=== PATIENT | female | born 1990 | race African-American/Black ===

== ENCOUNTER 2018-07-27 13:49 | Inpatient (IN) ==
[2018-07-27] MEDS ORDERED: SODIUM CHLORIDE 0.9% 1,000 ML IV STA (15:07)
[2018-07-27 15:29] LABS: Osmolality,Calculated 267.2 MOS/KG (273-304); Potassium 3.7 MMOL/L (3.5-5.1)
[2018-07-27] MEDS ORDERED: ONDANSETRON 4 MG/2 ML VIAL IV STA (16:00)
[2018-07-27] MEDS ORDERED: ACETAMINOPHEN 325 MG TABLET PO PRN (17:03)
[2018-07-27] MEDS ORDERED: PROMETHAZINE 25 MG/1 ML VIAL IM PRN (17:03)
[2018-07-27] MEDS ORDERED: MAGNESIUM HYDROXIDE SUSP 30 ML UDCUP PO PRN (17:03)
[2018-07-27] MEDS ORDERED: METOCLOPRAMIDE 10 MG/2 ML VIAL IV SCH (18:00)
[2018-07-27] MEDS: PROMETHAZINE 25 MG/1 ML VIAL IM PRN (18:21)
[2018-07-27] MEDS: LACTATED RINGERS 1,000 ML IV SCH (18:23)
[2018-07-27] MEDS: ENOXAPARIN 40 MG/0.4 ML SYRINGE SUBCUT SCH (20:17)
[2018-07-27] MEDS: ONDANSETRON 4 MG/2 ML VIAL IV SCH (22:12)
[2018-07-28] MEDS: LACTATED RINGERS 1,000 ML IV SCH ×4 (00:50→17:47)
[2018-07-28] MEDS: ONDANSETRON 4 MG/2 ML VIAL IV SCH ×4 (04:16→21:47)
[2018-07-28 05:38] LABS: Basophils % 0.3 % (0.0-0.8); Eosinophils % 0.6 % (0.00-10.9); Hematocrit 28.3 VOL% (35.7-47.0); Hemoglobin 9.3 GM/DL (12.0-16.0); Immature Granulocytes % 0.6 %; Immature Granulocytes Absolute 0.04 #; Lymphocytes # 1.2 10*3/uL (1.4-4.0); Lymphocytes % 16.4 % (21.3-54.2); Mean Corpuscular HGB Conc 32.9 GM/DL (32-36); Mean Corpuscular Hemoglobin 25 PG (27-34); Mean Corpuscular Volume 75.9 FL (87-102); Mean Platelet Volume 10.9 FL (9.6-12.0); Monocytes # 0.8 10*3/uL (0.11-0.8); Monocytes % 10.9 % (1.7-12.7); Neutrophils % 71.2 % (38.7-73.9); Platelet Count 213 T/CUMM (130-400); Red Blood Count 3.73 MC/CUMM (3.8-5.5); Red Cell Distribution Width 14.7 % (9.3-17.3); White Blood Count 7.1 T/CUMM (4-12)
[2018-07-28 05:57] LABS: Calcium 7.9 MG/DL (8.5-10.1); Osmolality,Calculated 272.5 MOS/KG (273-304); Potassium 3.8 MMOL/L (3.5-5.1)
[2018-07-28 08:44] LABS: Apearance,Urine CLEAR (Clear); Bacteria,Urine Occasional /HPF (Few); Bilirubin,Urine Negative (Negative); Blood, Urine Negative (Negative); Glucose,Urine (UA) Negative (Negative); Ketones,Urine 80 mg/dL (Negative); Mucus,Urine Occasional /LPF (Occasional); Nitrite,Urine Negative (Negative); Protein,Urine Negative; RBC,Urine 1 /HPF (0-4); Squamous Epithelial Cell,Urine Occasional /HPF (0-10); Urine Color Amber (Yellow); Urine Specific Gravity 1.017 (1.001-1.035); WBC,Urine 1 /HPF (0-6)
[2018-07-28] MEDS: ENOXAPARIN 40 MG/0.4 ML SYRINGE SUBCUT SCH (17:44)
[2018-07-28] MEDS ORDERED: ALUMINUM/MAGNES/SIMETH MAX STR 30 ML UDCUP PO PRN (19:54)
[2018-07-29] MEDS: LACTATED RINGERS 1,000 ML IV SCH ×4 (01:00→22:28)
[2018-07-29] MEDS: ONDANSETRON 4 MG/2 ML VIAL IV PRN ×3 (06:09→20:45)
[2018-07-29] MEDS: PANTOPRAZOLE 40 MG TABLET PO SCH ×2 (11:22→20:42)
[2018-07-29] MEDS: ENOXAPARIN 40 MG/0.4 ML SYRINGE SUBCUT SCH (17:09)
[2018-07-29] MEDS: DOCUSATE SODIUM 100 MG CAPSULE PO SCH (20:42)
[2018-07-30] MEDS: ONDANSETRON 4 MG/2 ML VIAL IV PRN ×3 (04:16→19:15)
[2018-07-30] MEDS: LACTATED RINGERS 1,000 ML IV SCH ×3 (05:46→21:49)
[2018-07-30 08:42] LABS: Basophils % 0.1 % (0.0-0.8); Eosinophils % 0.4 % (0.00-10.9); Hematocrit 28.2 VOL% (35.7-47.0); Hemoglobin 9.3 GM/DL (12.0-16.0); Immature Granulocytes % 0.7 %; Immature Granulocytes Absolute 0.05 #; Lymphocytes # 0.9 10*3/uL (1.4-4.0); Lymphocytes % 13.2 % (21.3-54.2); Mean Corpuscular Hemoglobin 25 PG (27-34); Mean Corpuscular Volume 75.4 FL (87-102); Mean Platelet Volume 10.6 FL (9.6-12.0); Monocytes # 0.5 10*3/uL (0.11-0.8); Monocytes % 7.9 % (1.7-12.7); Neutrophils # 5.2 10*3/uL (1.4-7.4); Neutrophils % 77.7 % (38.7-73.9); Platelet Count 205 T/CUMM (130-400); Red Blood Count 3.74 MC/CUMM (3.8-5.5); Red Cell Distribution Width 14.5 % (9.3-17.3); White Blood Count 6.7 T/CUMM (4-12)
[2018-07-30] MEDS: PANTOPRAZOLE 40 MG TABLET PO SCH ×2 (08:54→21:57)
[2018-07-30] MEDS: DOCUSATE SODIUM 100 MG CAPSULE PO SCH ×2 (08:54→21:57)
[2018-07-30 09:17] LABS: Albumin 2.4 G/DL (3.4-5.0); Bilirubin,Total 0.5 MG/DL (0.2-1.0); Calcium 8.4 MG/DL (8.5-10.1); Potassium 3.6 MMOL/L (3.5-5.1); Total Protein 5.6 G/DL (6.4-8.3)
[2018-07-30] MEDS: PROMETHAZINE 25 MG/1 ML VIAL IM PRN (15:47)
[2018-07-30] MEDS: ENOXAPARIN 40 MG/0.4 ML SYRINGE SUBCUT SCH (17:17)
[2018-07-30] MEDS ORDERED: ACETAMINOPHEN 325 MG TABLET PO PRN (19:52)
[2018-07-31] MEDS: ONDANSETRON 4 MG/2 ML VIAL IV PRN ×2 (04:11→10:34)
[2018-07-31 04:59] VITALS: BP 112/59
[2018-07-31] MEDS: LACTATED RINGERS 1,000 ML IV SCH (05:49)
[2018-07-31] MEDS: PANTOPRAZOLE 40 MG TABLET PO SCH (10:42)
[2018-07-31] MEDS: DOCUSATE SODIUM 100 MG CAPSULE PO SCH (10:43)
== END 2018-07-31 14:55 | disposition home health service (06) | DRG 832 ==
LOC: N.EDINP 13:49 → N.ED 13:49 → N.OB 17:18 → N.LD 07-29 16:05
PROVIDERS: ADMIT Obstetrics & Gynecology; ATTEND Obstetrics & Gynecology

== ENCOUNTER 2019-02-07 11:04 | Inpatient (IN) ==
[2019-02-07] MEDS ORDERED: OXYTOCIN/LR 30 UNIT/1,000 ML BAG IV ONE (11:36)
[2019-02-07] MEDS ORDERED: OXYTOCIN 10 UNIT/ML VIAL IM ONE (11:36)
[2019-02-07] MEDS ORDERED: LACTATED RINGERS 1,000 ML IV ONE ×2 (11:37→14:58)
[2019-02-07 11:44] LABS: Basophils # 0.1 10*3/uL (0.0-0.2); Basophils % 0.3 % (0.0-0.8); Eosinophils # 0.1 10*3/uL (0.0-0.87); Eosinophils % 0.7 % (0.00-10.9); Hematocrit 25.6 VOL% (35.7-47.0); Hemoglobin 7.6 GM/DL (12.0-16.0); Immature Granulocytes Absolute 0.92 #; Lymphocytes # 1.9 10*3/uL (1.4-4.0); Mean Corpuscular HGB Conc 29.7 GM/DL (32-36); Monocytes % 7.4 % (1.7-12.7); NRBC # 0.35 10*3/uL; Neutrophils % 73.6 % (38.7-73.9); Platelet Count 191 T/CUMM (130-400); Red Blood Count 3.88 MC/CUMM (3.8-5.5); Red Cell Distribution Width 21.1 % (9.3-17.3); White Blood Count 15.4 T/CUMM (4-12)
[2019-02-07] MEDS ORDERED: LACTATED RINGERS 1,000 ML IV SCH ×2 (12:00→15:00)
[2019-02-07] MEDS ORDERED: CITRIC ACID/SODIUM CITRATE 30 ML UDCUP PO ONE (12:00)
[2019-02-07] MEDS ORDERED: ceFAZolin 2,000 MG in SYRINGE 1 EACH IV ONE (12:00)
[2019-02-07] MEDS ORDERED: FAMOTIDINE 20 MG/2 ML VIAL IV ONE (12:00)
[2019-02-07 12:02] LABS: Band Neutrophils 3 % (0-10); Lymphocytes 13 % (20-55); Platelet Estimate Adequate; Segmented Neutrophils 79 % (50-85); Total Cells Counted 100
[2019-02-07 12:04] LABS: Hypochromasia 1+
[2019-02-07 12:12] LABS: Albumin 2.1 G/DL (3.4-5.0); Bilirubin,Total 0.4 MG/DL (0.2-1.0); Calcium 8.6 MG/DL (8.5-10.1); Osmolality,Calculated 274.5 MOS/KG (273-304); Total Protein 6.3 G/DL (6.4-8.3)
[2019-02-07 12:15] LABS: INR 0.9; PT Patient Result 9.3 SECS; Partial Thromboplastin Time 24.8 SECS (0-40)
[2019-02-07] MEDS ORDERED: ACETAMINOPHEN 325 MG TABLET PO PRN (14:44)
[2019-02-07] MEDS ORDERED: ONDANSETRON 4 MG/2 ML VIAL IV PRN (14:44)
[2019-02-07] MEDS ORDERED: IBUPROFEN 800 MG TABLET PO PRN (14:44)
[2019-02-07] MEDS ORDERED: MAGNESIUM HYDROXIDE SUSP 30 ML UDCUP PO PRN (14:44)
[2019-02-07] MEDS ORDERED: OXYTOCIN/LR 20 UNIT/1,000 ML BAG IV ONE (14:44)
[2019-02-07] MEDS ORDERED: RHO(D) IMMUNE GLOBULIN 300 MCG SYRINGE IM ONE (14:44)
[2019-02-07 14:54] LABS: Apearance,Urine CLEAR (Clear); Bacteria,Urine Occasional /HPF (Few); Bilirubin,Urine Negative (Negative); Blood, Urine Small mg/dL (Negative); Glucose,Urine (UA) Negative (Negative); Ketones,Urine Negative (Negative); Nitrite,Urine Negative (Negative); Protein,Urine 100 MG/DL; RBC,Urine 1 /HPF (0-4); Squamous Epithelial Cell,Urine Occasional /HPF (0-10); Urine Color Straw (Yellow); Urine Specific Gravity 1.006 (1.001-1.035); Urine Urobilinogen < 2.0 EU/DL (0.2-1.0); WBC,Urine <1 /HPF (0-6)
[2019-02-07] MEDS ORDERED: BUPIVACAINE SPINAL 0.75% 2 ML AMP SPINAL ONE (14:56)
[2019-02-07] MEDS ORDERED: LIDOCAINE 1% 5 ML VIAL ONE (14:56)
[2019-02-07] MEDS ORDERED: PROPOFOL 200 MG/20 ML VIAL IV ONE (14:56)
[2019-02-07] MEDS ORDERED: fentaNYL 100 MCG/2 ML VIAL ONE (14:57)
[2019-02-07] MEDS ORDERED: SEVOFLURANE 1 UNIT/15 MINUTE INH ONE (14:57)
[2019-02-07] MEDS ORDERED: ONDANSETRON 4 MG/2 ML VIAL ONE (14:57)
[2019-02-07] MEDS ORDERED: DEXAMETHASONE 4 MG/1 ML VIAL ONE ×2 (14:57→14:59)
[2019-02-07] MEDS ORDERED: MIDAZOLAM 2 MG/2 ML VIAL ONE (14:57)
[2019-02-07] MEDS ORDERED: MORPHINE 10 MG/10 ML VIAL ONE (14:57)
[2019-02-07] MEDS ORDERED: GLYCOPYRROLATE 0.4 MG/2 ML VIAL ONE (14:58)
[2019-02-07] MEDS ORDERED: ROCURONIUM 100 MG/10 ML VIAL IV ONE (14:58)
[2019-02-07] MEDS ORDERED: SUCCINYLCHOLINE 200 MG/10 ML VIAL ONE (14:58)
[2019-02-07] MEDS ORDERED: NEOSTIGMINE 10 MG/10 ML VIAL ONE (14:58)
[2019-02-07] MEDS ORDERED: KETOROLAC 30 MG/1 ML VIAL ONE (14:58)
[2019-02-07] MEDS ORDERED: EPINEPHrine 1 MG/ML VIAL ONE (14:59)
[2019-02-07] MEDS: HYDROmorphone 2 MG/1 ML VIAL IV PRN ×2 (14:59→19:03)
[2019-02-07] MEDS ORDERED: BUPIVACAINE 0.5% 50 ML VIAL ONE (14:59)
[2019-02-07] MEDS: KETOROLAC 30 MG/1 ML VIAL IV SCH ×2 (16:05→22:31)
[2019-02-07] MEDS: diphenhydrAMINE 50 MG/1 ML VIAL IV PRN ×2 (16:07→22:27)
[2019-02-07] MEDS ORDERED: SODIUM CHLORIDE 0.9% 1,000 ML IV PRN (17:16)
[2019-02-07] MEDS ORDERED: FUROSEMIDE 40 MG/4 ML VIAL IV PRN (17:18)
[2019-02-07] MEDS ORDERED: BENZOCAINE/MENTHOL LOZENGE 18/BOX PO PRN (22:10)
[2019-02-07] MEDS: DOCUSATE SODIUM 100 MG CAPSULE PO SCH (22:34)
[2019-02-07] MEDS: ceFAZolin 1,000 MG in SYRINGE 1 EACH IV SCH (22:52)
[2019-02-08] MEDS: HYDROmorphone 2 MG/1 ML VIAL IV PRN (02:38)
[2019-02-08] MEDS: diphenhydrAMINE 50 MG/1 ML VIAL IV PRN (03:54)
[2019-02-08] MEDS: KETOROLAC 30 MG/1 ML VIAL IV SCH ×2 (03:57→12:19)
[2019-02-08] MEDS: ceFAZolin 1,000 MG in SYRINGE 1 EACH IV SCH (05:23)
[2019-02-08 08:20] LABS: Basophils # 0.1 10*3/uL (0.0-0.2); Basophils % 0.3 % (0.0-0.8); Eosinophils # 0.1 10*3/uL (0.0-0.87); Eosinophils % 0.6 % (0.00-10.9); Hematocrit 32.3 VOL% (35.7-47.0); Immature Granulocytes % 4.3 %; Immature Granulocytes Absolute 0.68 #; Lymphocytes # 1.4 10*3/uL (1.4-4.0); Lymphocytes % 8.9 % (21.3-54.2); Mean Corpuscular HGB Conc 30.7 GM/DL (32-36); Mean Corpuscular Volume 72.4 FL (87-102); Monocytes % 7.4 % (1.7-12.7); NRBC # 0.21 10*3/uL; Neutrophils % 78.5 % (38.7-73.9); Platelet Count 165 T/CUMM (130-400); Red Blood Count 4.46 MC/CUMM (3.8-5.5); Red Cell Distribution Width 25.2 % (9.3-17.3); White Blood Count 15.9 T/CUMM (4-12)
[2019-02-08 08:21] LABS: Hemoglobin 9.9 GM/DL (12.0-16.0)
[2019-02-08] MEDS: MULTIVITAMIN (PRENATAL) TABLET PO SCH (08:37)
[2019-02-08] MEDS: DOCUSATE SODIUM 100 MG CAPSULE PO SCH ×2 (08:37→21:37)
[2019-02-08] MEDS: MAGNESIUM HYDROXIDE SUSP 30 ML UDCUP PO SCH ×2 (08:37→21:32)
[2019-02-08] MEDS: FERROUS SULFATE 325 MG TABLET PO SCH ×2 (08:37→21:37)
[2019-02-08] MEDS: SIMETHICONE CHEW 80 MG TABLET PO PRN ×2 (08:38→21:32)
[2019-02-08 08:42] LABS: Eosinophils 1 % (0-10); Hypochromasia 1+; Lymphocytes 5 % (20-55); Platelet Estimate Adequate; Segmented Neutrophils 90 % (50-85); Total Cells Counted 100
[2019-02-08] MEDS ORDERED: FUROSEMIDE 40 MG/4 ML VIAL IV ONE (09:00)
[2019-02-08] MEDS ORDERED: ENOXAPARIN 40 MG/0.4 ML SYRINGE SUBCUT ONE (09:00)
[2019-02-08 12:07] LABS: Albumin 1.9 G/DL (3.4-5.0); Bilirubin,Total 0.5 MG/DL (0.2-1.0); Calcium 7.8 MG/DL (8.5-10.1); Osmolality,Calculated 273.7 MOS/KG (273-304); Total Protein 5.8 G/DL (6.4-8.3)
[2019-02-08] MEDS: BISACODYL 10 MG SUPP RECTAL PRN (12:23)
[2019-02-08] MEDS ORDERED: MAGNESIUM CITRATE 300 ML BOTTLE PO ONE (20:45)
[2019-02-09] MEDS: SIMETHICONE CHEW 80 MG TABLET PO PRN ×2 (04:00→08:23)
[2019-02-09] MEDS: IBUPROFEN 800 MG TABLET PO PRN ×3 (04:01→17:38)
[2019-02-09] MEDS: MULTIVITAMIN (PRENATAL) TABLET PO SCH (08:22)
[2019-02-09] MEDS: DOCUSATE SODIUM 100 MG CAPSULE PO SCH ×2 (08:22→22:14)
[2019-02-09] MEDS: MAGNESIUM HYDROXIDE SUSP 30 ML UDCUP PO SCH ×2 (08:22→22:14)
[2019-02-09] MEDS: FERROUS SULFATE 325 MG TABLET PO SCH ×2 (08:23→20:58)
[2019-02-09] MEDS: ENOXAPARIN 40 MG/0.4 ML SYRINGE SUBCUT SCH (08:23)
[2019-02-09] MEDS: BISACODYL 10 MG SUPP RECTAL PRN (11:48)
[2019-02-10] MEDS: ENOXAPARIN 40 MG/0.4 ML SYRINGE SUBCUT SCH (08:46)
[2019-02-10] MEDS: DOCUSATE SODIUM 100 MG CAPSULE PO SCH (08:46)
[2019-02-10] MEDS: MAGNESIUM HYDROXIDE SUSP 30 ML UDCUP PO SCH (08:46)
[2019-02-10] MEDS: MULTIVITAMIN (PRENATAL) TABLET PO SCH (08:46)
[2019-02-10] MEDS: FERROUS SULFATE 325 MG TABLET PO SCH (08:46)
[2019-02-10] MEDS: IBUPROFEN 800 MG TABLET PO PRN (12:24)
[2019-02-10 12:25] VITALS: BP 148/91
== END 2019-02-10 14:45 | disposition home or self-care (01) | DRG 784 ==
LOC: N.LDOUT 11:04 → N.LD 11:06 → N.OB 21:11
PROVIDERS: ADMIT Obstetrics & Gynecology; ATTEND Obstetrics & Gynecology